=== PATIENT | male | born 1980 | race Caucasian/White ===

== ENCOUNTER 2018-01-05 12:03 | Emergency (ER) | payer OTHER ==
[2018-01-05 12:15] VITALS: BP 128/60; PULSE 60; TEMP 97.3; BMI 31.8
[2018-01-05] MEDS ORDERED: KETOROLAC TROMETHAMINE 30 MG/1 ML VIAL IM ONE (13:02)
[2018-01-05] MEDS ORDERED: KETOROLAC TROMETHAMINE 30 MG/1 ML VIAL ONE (13:04)
--- NOTE | 2018-01-05 13:07 | PDOC ---
History of Present Illness - General Chief Complaint: Back Pain Stated Complaint: BACK PAIN Time Seen by Provider: 01/05/18 12:45 History Source: Patient Exam Limitations: No Limitations - History of Present Illness Initial Comments: 01/05/18 13:02 HISTORY OF PRESENT ILLNESS: 37-year-old male without significant medical history presents emergency Department for evaluation of 3 days of dry and productive cough, sore throat, ear pain and one day of lower back pain and right shoulder pain. 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 Been taking Tylenol with minimal relief of symptoms. Patient states he woke up this morning with acute left lower back pain and right shoulder pain. He states he has full range of motion but is diminished due to pain. Patient describes the shoulder pain as a sharp pain shooting down the backside of his right upper extremity. Patient denies any heavy lifting, saddle anesthesia, urinary incontinence, bowel incontinence, urinary retention, history of IV drug use or history of cancer. No recent travel or sick contacts. PAST MEDICAL HISTORY: Denies past medical history SURGICAL HISTORY: Denies ALLERGIES: No known drug allergies REVIEW OF SYSTEMS General/Constitutional: Denies fever or chills. Denies weakness, weight change. HEENT: Denies change in vision. Denies ear pain or discharge. +sore throat. Cardiovascular: Denies chest pain or shortness of breath. Respiratory: Dry unproductive cough. No wheezing, or hemoptysis. Gastrointestinal: Denies nausea, vomiting, diarrhea or constipation. Denies rectal bleeding. Genitourinary: Denies dysuria, frequency, or change in urination. Musculoskeletal: Right shoulder pain. Left lower back pain. Skin and breasts: Denies rash or easy bruising. Neurologic: Denies headache, vertigo, loss of consciousness, or loss of sensation. Psychiatric: Denies depression or anxiety. Endocrine: Denies increased thirst. Denies abnormal weight change. Hematologic/Lymphatic: Denies anemia, easy bleeding, or history of blood clots. Allergic/Immunologic: Denies hives or skin allergy. Denies latex allergy. PHYSICAL EXAM General Appearance: Well-appearing, appropriately dressed. No apparent distress , no intoxication. HEENT: EOMI, PERRLA, normal ENT inspection, normal voice. No conjunctival pallor. No photophobia, scleral icterus. TMs with retractions, cobblestoning in posterior OP, OP erythematous with lesions or exudates. Neck: Supple. Trachea midline. No tenderness, rigidity, carotid bruit, stridor , lymphadenopathy, or thyromegaly. Respiratory/Chest: Lungs CTAB. No shortness of breath, chest tenderness, respiratory distress, accessory muscle use. No crackles, rales, rhonchi, stridor , wheezing, dullness Cardiovascular: RRR. S1, S2. No JVD, murmur, bradycardia, tachycardia. Vascular Pulses: Dorsalis-Pedis (R): 2+, Dorsalis-Pedis (L): 2+ Gastrointestinal/Abdominal: Normal bowel sounds. Abdomen soft, non-distended. No tenderness or rebound tenderness. No organomegaly, pulsatile mass, guarding, hernia, hepatomegaly, splenomegaly. Lymphatic: No adenopathy, tenderness. Musculoskeletal/Extremities: Normal inspection. FROM of all extremities, normal capillary refill. Pelvis Stable. No CVA tenderness. No tenderness to extremities, pedal edema, swelling, erythema or deformity. Point tenderness in the left paraspinous muscles with noted muscle spasm. Full range of motion of right shoulder. Credit Counselor strength 5/5 bilaterally. Integumentary: Appropriate color, dry, warm. No cyanosis, erythema, jaundice or rash Neurologic: autoglazier II-XII intact. Fully oriented, alert. Appropriate mood/affect. Motor strength 5/5. No appreciable EOM palsy, facial droop or sensory deficit. Past History - Past Medical History Allergies/Adverse Reactions: Allergies Allergy/AdvReac Type Severity Reaction Status Date / Time No Known Allergies Allergy Verified 01/05/18 12:12 Home Medications: Ambulatory Orders Methocarbamol [Robaxin -] 1,500 mg PO Q8H PRN #30 tablet 01/05/18 COPD: No - Immunization History Immunization Up to Date: Yes - Suicide/Smoking/Psychosocial Hx Smoking History: Never smoked Have you smoked in the past 12 months: No If you are a former smoker, when did you quit?: 2014 Information on smoking cessation initiated: No Hx Alcohol Use: No Drug/Substance Use Hx: No Substance Use Type: None *Physical Exam - Vital Signs Last Vital Signs Temp Pulse Resp BP Pulse Ox 97.3 F L 60 18 128/60 98 01/05/18 12:12 01/05/18 12:12 01/05/18 12:12 01/05/18 12:12 01/05/18 12:12 Medical Decision Making - Medical Decision Making 01/05/18 13:02 A/P: 37-year-old male who denies medical history with lower back pain, right shoulder pain and upper respiratory symptoms TMs with retractions bilaterally. Oropharynx erythematous with cobblestoning noted in the posterior aspect. Lungs clear to auscultation bilaterally Left paraspinous muscle spasms Full range of motion noted of right shoulder No palpable deformities, crepitus noted. Patient with a upper respiratory infection as well as muscle spasms *DC/Admit/Observation/Transfer Diagnosis at time of Disposition: Muscle spasm of back URI (upper respiratory infection) Qualifiers: URI type: unspecified viral URI Qualified Code(s): J06.9 - Acute upper respiratory infection, unspecified - Discharge Dispostion Disposition: HOME Condition at time of disposition: Stable Decision to Admit order: No - Prescriptions Prescriptions: Methocarbamol [Robaxin -] 1,500 mg PO Q8H PRN #30 tablet PRN Reason: Back Pain - Referrals Referrals: ON STAFF,NOT [Primary Care Provider] - - Patient Instructions Additional Instructions: Rest, drink lots of fluids: Teas, water, soups, Pedialyte Saltwater gargles Steamy showers/seem to face break up mucus Avoid contact with others until fevers and cough resolved Lots of handwashing and good hygiene Continue [id number] medications for symptomatic relief Tylenol or Motrin for fever and pain Return to emergency department for worsened symptoms, fevers, dehydration Rest, no heavy lifting or exercise until pain is resolved Hot soaks to neck and low back as often as possible/hot showers or Jacuzzis No massage or therapy until spasm is gone Robaxin 1500mg every 8 hours as needed for spasm If not significant improvement within 24 hours with medication and rest regime, followup with private physician for change in medications and /or therapy. - Post Discharge Activity Forms/Work/School Notes: Back to Work
== END 2018-01-05 13:18 | disposition home or self-care (01) ==
LOC: JERFT 12:03
PROC: 3E0233Z Introduction of Anti-inflammatory into Muscle, Percutaneous Approach (ICD-10-PCS; principal; 2018-01-05)
DX: J06.9 Acute upper respiratory infection, unspecified (principal); M62.830 Muscle spasm of back
CPT/HCPCS: 99281-25